=== PATIENT | female | born 1985 | race Caucasian/White ===

== ENCOUNTER → 2016-08-20 | Outpatient (CLI) | payer OTHER ==
--- NOTE | 2016-08-20 12:39 | DIAGNOSTIC IMAGING REPORT ---
MRI CERVICAL WITHOUT CONTRAST CLINICAL HISTORY: Headaches, neck pain, arm and hand pain. Cervical radiculopathy. TECHNIQUE: Sagittal and axial T1, T2 and STIR images were obtained. COMPARISON STUDY: No previous studies for comparison. There are no suspicious areas of marrow replacement. 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 The syringohydromyelia measures 3 mm x 2 mm in maximal transverse and AP diameter. C2-3: There is no evidence of disc bulge or focal herniation. There is no spinal or foraminal stenosis. C3-4: There is no evidence of disc bulge or focal herniation. There is no spinal or foraminal stenosis. C4-5: There are no disc bulges or focal herniations. There is no spinal or foraminal stenosis. C5-6 :There is a small left paracentral disc protrusion. This effaces the left anterior aspect the thecal sac. There is no significant foraminal narrowing. C6-7: There is no evidence of disc bulge or focal herniation. There is no evidence of spinal or foraminal stenosis. C7-T1: There is no evidence of disc bulge or focal herniation. There is no evidence of spinal or foraminal stenosis. IMPRESSION: 1. Small left paracentral disc protrusion at the C5-6 level 2. 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 This measures 3 x 2 mm in maximal transverse and AP diameter Electronically signed by: Jeronimo Otero M.D. 08/20/2016 12:37 PM Dictated Date/Time: 08/20/2016 12:33 PM
== END | disposition home or self-care (01) ==
LOC: C.MRIBC 10:11
PROVIDERS: ATTEND Psychiatry & Neurology Neurology
DX: M54.2 Cervicalgia (principal)

== ENCOUNTER → 2017-08-20 | Outpatient (CLI) | payer OTHER ==
--- NOTE | 2017-08-20 13:29 | DIAGNOSTIC IMAGING REPORT ---
CERVICAL WITHOUT CONTRAST HISTORY: 31 years-old Female G95.0 SyringomyeliaJanuary 2018, one year follow up, compare to follow-up study in a patient with chronic neck pain with bilateral upper extremity and hand numbness. Syrinx of the cervical spine noted extending from C6-T2 measuring 3 x 2 mm on comparison study COMPARISON: MRI cervical spine 08/20/2016 TECHNIQUE: Multiplanar multisequence MRI of the cervical spine was obtained without contrast. FINDINGS: The large field view ship officer localizer images demonstrate no gross abnormality. Several of the sequences are motion degraded. Redemonstration of a homogeneous T1 hypointense and T2 hyperintense collection of the central cervical spinal cord extending from approximately the C6-T2 levels measuring up to 2 x 3 mm in AP and transverse dimension, stable from comparison study. Signal within the cord is otherwise within normal limits. Posterior fossa structures are unremarkable. No acute fracture, focal bone marrow edema or malalignment. T2 hyperintense lesion of the T3 vertebral body is unchanged, 8 mm suggesting hemangioma. C2-C3: No significant central canal or foraminal narrowing. C3-C4: Mild right uncovertebral spurring with mild right foraminal narrowing. C4-C5: No significant central canal or foraminal narrowing. C5-C6: Mild disc desiccation with uncovertebral spurring and broad-based posterior disc bulge with annular fissure and left paracentral disc bulge partially effacing the ventral thecal sac causing mild central canal and mild left lateral recess stenosis. Foramen are generally patent. C6-C7: No significant central canal or foraminal narrowing. C7-T1: No significant central canal or foraminal narrowing. IMPRESSION: 1. Mild disc desiccation and uncovertebral spurring with broad-based posterior disc bulge and annular fissure with left paracentral disc bulge at C5-C6 causes mild central canal and mild left lateral recess narrowing. 2. Unchanged small syrinx of the lower cervical spine measuring up to 2 x 3 mm in AP and transverse dimension The above report was generated using voice recognition software. It may contain grammatical, syntax or spelling errors. Electronically signed by: Nir Grace M.D. 08/20/2017 1:27 PM Dictated Date/Time: 08/20/2017 1:17 PM
== END | disposition home or self-care (01) ==
LOC: C.MRI 10:41
PROVIDERS: ATTEND Physician Assistant
DX: G95.0 Syringomyelia and syringobulbia (principal); M50.222 Other cervical disc displacement at C5-C6 level; M48.02 Spinal stenosis, cervical region